=== PATIENT | male | born 1955 | race Caucasian/White ===

== ENCOUNTER 2017-02-03 11:12 | Inpatient (IN) | payer OTHER ==
[~2017-02-03] VITALS: Ht 175.3 cm; Wt 69.9 kg
[2017-02-03] VITALS (11 sets, daily range): BP systolic 101–139; BP diastolic 53–74
[2017-02-03 11:29] LABS: CARBOXY HGB 1.5 % (0-5); COMMENTS - BLOOD GASES C+; METHEMOGLOBIN 1.1 % (0-1.5); PCO2 < 20 mm Hg (35-45); PO2 147 mm Hg (80-100); SITE RB; pH < 6.91 (7.35-7.45)
[2017-02-03 11:30] LABS: DEVICE RA; FI02 0.21 %; TOTAL RESP RATE 38 resp/min
[2017-02-03 11:49] LABS: MCH 32.4 PG (29.0-34.0); MCHC 28.2 G/DL (30.0-36.0); MCV 114.6 FL (86-99); MEAN PLAT.VOLUME 12.1 uM^3 (9.0-12.4); PLATELET COUNT 261 K/uL (156-360); RBC DIS.WIDTH-CV 12.5 % (11.8-14.6); RED BLOOD COUNT 4.45 M/uL (4.00-5.50); WHITE BLOOD COUNT 28.9 K/uL (4.1-10.2)
[2017-02-03 11:54] LABS: PROTHROMBIN TIME 11.5 SEC (10.2-12.9)
[2017-02-03 11:56] LABS: PTT 29.3 SEC (25-37)
[2017-02-03 12:00] LABS: CHLORIDE 96 mEq/L (99-109); SODIUM 133 mEq/L (136-147)
[2017-02-03 12:03] LABS: ANION GAP 34 MEQ/L (2-14)
[2017-02-03 12:04] LABS: TOTAL BILIRUBIN 0.4 mg/dL (0.0-1.0)
[2017-02-03 12:06] LABS: ALKALINE PHOSPHATASE 147 IU/L (3-129)
[2017-02-03 12:07] LABS: UREA NITROGEN (BUN) 30 mg/dL (9-23)
[2017-02-03 12:08] LABS: TROP-I INTERPRETATION NEGATIVE; TROPONIN-I 0.02 ng/mL (0.0-0.30)
[2017-02-03 12:09] LABS: CREATINE KINASE 106 IU/L (1-294); GFR ESTIMATE (CALCULATED) 23 mL/min/; POTASSIUM 7.3 mEq/L (3.7-5.4); TOTAL CK 106 IU/L (1-294)
[2017-02-03 12:17] LABS: CK-MB 5.6 ng/mL (0.0-4.9)
[2017-02-03 12:19] LABS: GLUCOSE 1178 mg/dL (70-99)
[2017-02-03 12:22] LABS: CARBOXY HGB 1.4 % (0-5); COMMENTS - BLOOD GASES C+; METHEMOGLOBIN 1.3 % (0-1.5); PCO2 < 20 mm Hg (35-45); PO2 143 mm Hg (80-100); SITE RB; pH 6.95 (7.35-7.45)
[2017-02-03 12:23] LABS: DEVICE RA; FI02 0.21 %; TOTAL RESP RATE 36 resp/min
[2017-02-03] MEDS ORDERED: NOVOLOG PE100 UNITS/ SC (12:45)
[2017-02-03] MEDS ORDERED: NEURONTIN300 MG PO (12:45)
[2017-02-03] MEDS ORDERED: LISINOPRIL10 MG PO (12:45)
[2017-02-03] MEDS ORDERED: LANTUS 3 M100 UNITS1 SC (12:45)
[2017-02-03] MEDS ORDERED: OXYCODONE HCL10 MG PO (12:46)
[2017-02-03 12:48] LABS: BURR CELLS 1+; EOSINOPHIL ABS CT 0; INSTRUMENT ABS NEUTROPHIL CT 22.8 K/uL; LYMPHOCYTES 7.5 % (15.0-45.0); METAMYELOCYTES 0.9 %; MYELOCYTES 0.4 %; PLAT.SUFFICIENCY ADEQUATE; POIKILOCYTOSIS 1+; SEG.NEUTROPHILS 89.9 % (46.0-76.0); TOX.VACUOLIZATION 2+
[2017-02-03 13:54] LABS: CARBOXY HGB 1.5 % (0-5); COMMENTS - BLOOD GASES C+; DEVICE RA; FI02 0.21 %; METHEMOGLOBIN 1.3 % (0-1.5); PCO2 < 20 mm Hg (35-45); SITE RB; pH 7.04 (7.35-7.45)
[2017-02-03 13:55] LABS: TOTAL RESP RATE 26 resp/min
[2017-02-03 13:56] LABS: Estimated Average Glucose 246 mg/dL (70-123); HEMOGLOBIN A1c (GLYCOHEMOGLOB) 10.2 % HGB (Below 5.7)
[2017-02-03 15:42] LABS: ANION GAP 31 MEQ/L (2-14); CHLORIDE 105 MEQ/L (99-109); SAMPLE HEMOLYSIS CHECK 0; SAMPLE ICTERIC CHECK 0; SAMPLE LIPEMIA CHECK 0; UREA NITROGEN (BUN) 30 mg/dL (9-23)
[2017-02-03 15:44] LABS: GFR ESTIMATE (CALCULATED) 36 mL/min/; GLUCOSE 872 mg/dL (70-99); POTASSIUM 3.6 MEQ/L (3.7-5.4); SODIUM 144 MEQ/L (136-147)
[2017-02-03 15:51] LABS: METH RESISTANT S AUREUS PCR NEGATIVE (NEGATIVE)
[2017-02-03 15:52] LABS: PROBE CHECK PASS; SPECIMEN PROCESSING CONTROL PASS
[2017-02-03] MEDS ORDERED: ATORVASTATIN CA10 MG PO (16:35)
[2017-02-03] MEDS ORDERED: METFORMIN HCL500 MG PO (16:35)
[2017-02-03 18:57] LABS: POINT-OF-CARE METER ID UU13113731
[2017-02-03 19:07] LABS: ANION GAP 23 MEQ/L (2-14); CHLORIDE 113 MEQ/L (99-109); GFR ESTIMATE (CALCULATED) 47 mL/min/; POTASSIUM 3.6 MEQ/L (3.7-5.4); SAMPLE HEMOLYSIS CHECK 0; SAMPLE ICTERIC CHECK 0; SAMPLE LIPEMIA CHECK 0; SODIUM 149 MEQ/L (136-147); UREA NITROGEN (BUN) 30 mg/dL (9-23)
[2017-02-03 19:09] LABS: GLUCOSE 462 mg/dL (70-99)
[2017-02-03 19:25] LABS: POINT-OF-CARE METER ID UU13113803; POINT-OF-CARE USER ID LABHNS84
[2017-02-03 20:28] LABS: POINT-OF-CARE METER ID UU13113803; POINT-OF-CARE USER ID LABHNS84
[2017-02-03 21:33] LABS: POINT-OF-CARE METER ID UU13113731
[2017-02-03 21:55] LABS: POINT-OF-CARE METER ID UU13113731
[2017-02-03 21:55] LABS: POINT-OF-CARE METER ID UU13113731
[2017-02-03 22:32] LABS: POINT-OF-CARE METER ID UU13113731
[2017-02-03 23:28] LABS: POINT-OF-CARE METER ID UU13113731
[2017-02-04] VITALS (21 sets, daily range): BP systolic 105–149; BP diastolic 50–90
[2017-02-04 00:24] LABS: POINT-OF-CARE METER ID UU13113731
[2017-02-04 00:53] LABS: POTASSIUM 3.7 mEq/L (3.7-5.4); SODIUM 152 mEq/L (136-147)
[2017-02-04 00:56] LABS: ANION GAP 12 MEQ/L (2-14); CHLORIDE 119 mEq/L (99-109); GLUCOSE 202 mg/dL (70-99)
[2017-02-04 00:58] LABS: GFR ESTIMATE (CALCULATED) 51 mL/min/
[2017-02-04 00:59] LABS: UREA NITROGEN (BUN) 31 mg/dL (9-23)
[2017-02-04 01:09] LABS: POINT-OF-CARE METER ID UU13113731
[2017-02-04 02:18] LABS: POINT-OF-CARE METER ID UU13113731
[2017-02-04 03:05] LABS: POINT-OF-CARE METER ID UU13113731
[2017-02-04 04:16] LABS: POINT-OF-CARE METER ID UU13113803
[2017-02-04 04:52] LABS: CHLORIDE 121 mEq/L (99-109); SODIUM 152 mEq/L (136-147)
[2017-02-04 04:54] LABS: GLUCOSE 156 mg/dL (70-99)
[2017-02-04 04:56] LABS: POINT-OF-CARE METER ID UU13113803
[2017-02-04 04:56] LABS: ANION GAP 11 MEQ/L (2-14)
[2017-02-04 04:58] LABS: GFR ESTIMATE (CALCULATED) 55 mL/min/
[2017-02-04 04:59] LABS: UREA NITROGEN (BUN) 30 mg/dL (9-23)
[2017-02-04 05:40] LABS: POINT-OF-CARE METER ID UU13113803
[2017-02-04 06:34] LABS: POINT-OF-CARE METER ID UU13113803
[2017-02-04 07:28] LABS: POINT-OF-CARE METER ID UU13113803
[2017-02-04 08:25] LABS: POINT-OF-CARE METER ID UU13113803
[2017-02-04 09:22] LABS: POINT-OF-CARE METER ID UU13113803
[2017-02-04 09:59] LABS: ANION GAP 8 MEQ/L (2-14); CHLORIDE 118 MEQ/L (99-109); GFR ESTIMATE (CALCULATED) > 59 mL/min/; GLUCOSE 210 mg/dL (70-99); POTASSIUM 4.1 MEQ/L (3.7-5.4); SAMPLE HEMOLYSIS CHECK 1; SAMPLE ICTERIC CHECK 0; SAMPLE LIPEMIA CHECK 0; SODIUM 151 MEQ/L (136-147); UREA NITROGEN (BUN) 30 mg/dL (9-23)
[2017-02-04 10:20] LABS: POINT-OF-CARE METER ID UU13113803
[2017-02-04 11:12] LABS: POINT-OF-CARE METER ID UU13113803
[2017-02-04 12:19] LABS: POINT-OF-CARE METER ID UU13113803
[2017-02-04 12:33] LABS: ANION GAP 6 MEQ/L (2-14); CHLORIDE 120 MEQ/L (99-109); GFR ESTIMATE (CALCULATED) > 59 mL/min/; GLUCOSE 187 mg/dL (70-99); POTASSIUM 3.9 MEQ/L (3.7-5.4); SAMPLE HEMOLYSIS CHECK 0; SAMPLE ICTERIC CHECK 0; SAMPLE LIPEMIA CHECK 0; SODIUM 156 MEQ/L (136-147); UREA NITROGEN (BUN) 30 mg/dL (9-23)
[2017-02-04 13:32] LABS: POINT-OF-CARE METER ID UU13113803
[2017-02-04 14:30] LABS: POINT-OF-CARE METER ID UU13113803
[2017-02-04 15:26] LABS: POINT-OF-CARE METER ID UU13113803
[2017-02-04 17:59] LABS: POINT-OF-CARE METER ID UU13113803
[2017-02-04 23:49] LABS: POINT-OF-CARE METER ID UU13113803
[2017-02-05] VITALS (13 sets, daily range): BP systolic 101–142; BP diastolic 56–89
[2017-02-05 06:12] LABS: POINT-OF-CARE METER ID UU14314082
[2017-02-05 06:49] LABS: ANION GAP 7 MEQ/L (2-14); CHLORIDE 110 MEQ/L (99-109); GFR ESTIMATE (CALCULATED) > 59 mL/min/; GLUCOSE 131 mg/dL (70-99); POTASSIUM 3.4 MEQ/L (3.7-5.4); SAMPLE HEMOLYSIS CHECK 0; SAMPLE ICTERIC CHECK 0; SAMPLE LIPEMIA CHECK 0; SODIUM 148 MEQ/L (136-147); UREA NITROGEN (BUN) 23 mg/dL (9-23)
[2017-02-05 11:42] LABS: POINT-OF-CARE METER ID UU14162636
[2017-02-05 12:21] LABS: POINT-OF-CARE METER ID UU14314082
[2017-02-05 14:07] LABS: POINT-OF-CARE METER ID UU14314082
[2017-02-05 18:10] LABS: POINT-OF-CARE METER ID UU14188577
[2017-02-05 22:05] LABS: POINT-OF-CARE METER ID UU14149397
[2017-02-06 04:47] VITALS: BP 108/65
[2017-02-06 06:50] LABS: POINT-OF-CARE METER ID UU14149397
[2017-02-06 07:12] LABS: POINT-OF-CARE METER ID UU14149397
[2017-02-06 07:27] LABS: ANION GAP 7 MEQ/L (2-14); CHLORIDE 105 MEQ/L (99-109); GFR ESTIMATE (CALCULATED) > 59 mL/min/; POTASSIUM 3.1 MEQ/L (3.7-5.4); SAMPLE HEMOLYSIS CHECK 0; SAMPLE ICTERIC CHECK 0; SAMPLE LIPEMIA CHECK 0; SODIUM 141 MEQ/L (136-147); UREA NITROGEN (BUN) 13 mg/dL (9-23)
[2017-02-06 07:33] LABS: GLUCOSE 52 mg/dL (70-99)
[2017-02-06 08:05] VITALS: BP 123/74
[2017-02-06 09:09] LABS: MAGNESIUM 2.2 mg/dl (1.3-2.7)
[2017-02-06 12:12] VITALS: BP 125/79
[2017-02-06 12:16] LABS: POINT-OF-CARE METER ID UU14117124
[2017-02-06 13:57] LABS: ALKALINE PHOSPHATASE 89 IU/L (3-129); DIRECT BILIRUBIN 0.1 mg/dL (0.0-0.3); TOTAL BILIRUBIN 0.7 MG/DL (0.0-1.0)
[2017-02-06 15:00] LABS: ADD MIUA? NO; BILIRUBIN NEGATIVE; BLOOD NEGATIVE; COLOR YELLOW ((YELLOW)); GLUCOSE (STRIP) >=500; KETONES 5; LEUKOCYTES NEGATIVE; NITRITE NEGATIVE; PROTEIN (STRIP) NEGATIVE; SPECIFIC GRAVITY 1.021 (1.000-1.030)
[2017-02-06 16:35] VITALS: BP 127/69
[2017-02-06 16:48] LABS: POINT-OF-CARE METER ID UU14117124
[2017-02-06] MEDS ORDERED: LYRICA150 MG PO (17:02)
[2017-02-06 20:43] VITALS: BP 122/64
[2017-02-06 23:08] LABS: POINT-OF-CARE METER ID UU13113717
[2017-02-06 23:48] VITALS: BP 140/75
[2017-02-07 07:01] LABS: HEMATOCRIT 38.9 % (38.0-50.0); MCH 31.5 PG (29.0-34.0); MCHC 32.1 G/DL (30.0-36.0); RBC DIS.WIDTH-CV 12.7 % (11.8-14.6); RBC DIS.WIDTH-SD 45.5 % (39-53); RED BLOOD COUNT 3.97 M/uL (4.00-5.50); WHITE BLOOD COUNT 8.4 K/uL (4.1-10.2)
[2017-02-07 07:13] LABS: ANION GAP 7 MEQ/L (2-14); CHLORIDE 106 MEQ/L (99-109); GFR ESTIMATE (CALCULATED) > 59 mL/min/; GLUCOSE 73 mg/dL (70-99); SAMPLE HEMOLYSIS CHECK 0; SAMPLE ICTERIC CHECK 0; SAMPLE LIPEMIA CHECK 0; SODIUM 146 MEQ/L (136-147); UREA NITROGEN (BUN) 11 mg/dL (9-23)
[2017-02-07 07:18] LABS: MEAN PLAT.VOLUME 11.2 uM^3 (9.0-12.4); PLAT.SUFFICIENCY DECREASED; PLATELET COUNT 115 K/uL (156-360); POTASSIUM 4.1 MEQ/L (3.7-5.4)
[2017-02-07 07:59] LABS: POINT-OF-CARE METER ID UU13113717
[2017-02-07 09:32] VITALS: BP 123/73
[2017-02-07] MEDS ORDERED: GABAPENTIN300 MG PO (11:45)
[2017-02-07] MEDS ORDERED: NICOTINE PATCH1 EAC2 TD (11:45)
[2017-02-07] MEDS ORDERED: LYRICA150 MG PO (11:45)
[2017-02-07] MEDS ORDERED: METFORMIN HCL500 MG PO (11:45)
[2017-02-07] MEDS ORDERED: NOVOLIN,HU100 UNITS/ SC ×2 (11:45→11:51)
[2017-02-07 12:41] LABS: POINT-OF-CARE METER ID UU13113717
== END 2017-02-07 15:10 | disposition home or self-care (01) | DRG 638 ==
LOC: EME 11:12 → 3EAST 12:33 → 4WEST 12:33 → EDOF 12:33 → ENRESERV 12:36 → EDOF 13:12 → 4WEST 14:08 → ENRESERV 02-05 14:58 → 3EAST 02-05 16:41 → ENRESERV 02-06 18:01 → 5SOUTH 02-06 20:04 → ENPENDDIS 02-07 → 5SOUTH 02-07 15:10
PROVIDERS: Emergency Medicine; Family Medicine; Hospitalist; Internal Medicine Critical Care Medicine; Physician Assistant; Specialist
DX: E10.10 Type 1 diabetes mellitus with ketoacidosis without coma (principal); N17.9 Acute kidney failure, unspecified; T46.4X5A Adverse effect of angiotensin-converting-enzyme inhibitors, initial encounter; E86.0 Dehydration; E86.1 Hypovolemia; E87.0 Hyperosmolality and hypernatremia; E87.5 Hyperkalemia; E87.6 Hypokalemia; R09.02 Hypoxemia; I10 Essential (primary) hypertension; J43.9 Emphysema, unspecified; F17.200 Nicotine dependence, unspecified, uncomplicated
CPT/HCPCS: 36600; 70450; 71010; 80048; 80048 91; 80053; 80076; 81003; 82010; 82550; 82553; 82803; 82948; 83036; 83605; 83735; 84100; 84295; 84484; 85025; 85027; 85048; 85610; 85730; 87040; 87077; 87086; 87502; 87641; 87801; 90686; 93005; 94799; 99281; 99285; J1644; J1815; J2270; J2405; J3370; J3480; J7030; J7040; J7050

== ENCOUNTER 2017-03-01 09:13 | Inpatient (IN) | payer OTHER ==
[~2017-03-01] VITALS: Ht 175.3 cm; Wt 71.6 kg
[~2017-03-01 09:13] MED LIST: ATORVASTATIN CA10 MG PO; GABAPENTIN300 MG PO; LANTUS 3 M100 UNITS1 SC; LISINOPRIL10 MG PO; LYRICA150 MG PO; METFORMIN HCL500 MG PO; NEURONTIN300 MG PO; NICOTINE PATCH1 EAC2 TD; NOVOLIN,HU100 UNITS/ SC; NOVOLOG PE100 UNITS/ SC; OXYCODONE HCL15 MG PO
[2017-03-01 11:09] LABS: APPEARANCE SL.HAZY ((CLEAR)); BILIRUBIN NEGATIVE; BLOOD NEGATIVE; COLOR YELLOW ((YELLOW)); GLUCOSE (STRIP) >=500; KETONES 20; LEUKOCYTES NEGATIVE; NITRITE NEGATIVE; PROTEIN (STRIP) NEGATIVE; SPECIFIC GRAVITY 1.033 (1.000-1.030)
[2017-03-01 11:10] LABS: HEMATOCRIT 46.3 % (38.0-50.0); MCH 32.2 PG (29.0-34.0); MCHC 33.5 G/DL (30.0-36.0); MCV 96.1 FL (86-99); RBC DIS.WIDTH-CV 13.3 % (11.8-14.6); WHITE BLOOD COUNT 10.6 K/uL (4.1-10.2)
[2017-03-01 11:12] LABS: BACTERIA RARE /HPF; EPITHELIAL CELLS RARE /HPF; MUCUS TRACE /LPF; RED BLOOD CELLS 0-5 /HPF (0-5); URIC ACID CRYSTALS 2+ /HPF; WHITE BLOOD CELLS 0-5 /HPF (0-5)
[2017-03-01 11:17] LABS: ALBUMIN 3.7 g/dL (3.2-4.8); HEMOGLOBIN 15.5 G/DL (12.5-16.6); PLATELET COUNT 272 K/uL (156-360); RED BLOOD COUNT 4.82 M/uL (4.00-5.50)
[2017-03-01 11:18] LABS: CHLORIDE 100 mEq/L (99-109); POTASSIUM 4.8 mEq/L (3.7-5.4); SODIUM 132 mEq/L (136-147)
[2017-03-01 11:20] LABS: GLUCOSE 307 mg/dL (70-99); TOTAL PROTEIN 6.7 g/dL (6.4-8.3)
[2017-03-01 11:22] LABS: TOTAL BILIRUBIN 0.8 mg/dL (0.0-1.0)
[2017-03-01 11:23] LABS: ALKALINE PHOSPHATASE 117 IU/L (3-129)
[2017-03-01 11:24] LABS: CREATININE 0.9 mg/dL (0.6-1.3); GFR ESTIMATE (CALCULATED) > 59 mL/min/ (58.99-99999)
[2017-03-01 11:25] LABS: AST (GOT) 10 IU/L (2-34); UREA NITROGEN (BUN) 21 mg/dL (9-23)
[2017-03-01 11:27] LABS: ALT (GPT) 9 IU/L (3-49); LIPASE 2 U/L (1.0-51.0)
[2017-03-01 11:46] LABS: TROP-I INTERPRETATION NEGATIVE; TROPONIN-I < 0.01 ng/mL (0.0-0.30)
[2017-03-01 14:22] LABS: MAGNESIUM 1.9 mg/dL (1.3-2.7)
[2017-03-01 14:27] LABS: PHOSPHORUS 4.6 mg/dL (2.5-4.9)
[2017-03-01] MEDS ORDERED: LEVEMIR100 UNIT/2 SC (15:14)
[2017-03-01 17:00] VITALS: BP 159/84
[2017-03-01 22:58] VITALS: BP 137/84
[2017-03-02 04:27] VITALS: BP 138/71
[2017-03-02 05:45] LABS: HEMATOCRIT 35.9 % (38.0-50.0); MCH 31.9 PG (29.0-34.0); MCHC 32.3 G/DL (30.0-36.0); MCV 98.6 FL (86-99); PLATELET COUNT 223 K/uL (156-360); RBC DIS.WIDTH-CV 13.2 % (11.8-14.6); RBC DIS.WIDTH-SD 48.5 % (39-53); WHITE BLOOD COUNT 7.4 K/uL (4.1-10.2)
[2017-03-02 05:47] LABS: HEMOGLOBIN 11.6 G/DL (12.5-16.6); RED BLOOD COUNT 3.64 M/uL (4.00-5.50)
[2017-03-02 05:59] LABS: CHLORIDE 101 MEQ/L (99-109); CREATININE 0.6 MG/DL (0.6-1.3); GFR ESTIMATE (CALCULATED) > 59 mL/min/ (58.99-99999); GLUCOSE 245 mg/dL (70-99); POTASSIUM 4.7 MEQ/L (3.7-5.4); SODIUM 136 MEQ/L (136-147); UREA NITROGEN (BUN) 14 mg/dL (9-23)
[2017-03-02 08:11] VITALS: BP 137/77
[2017-03-02 11:38] VITALS: BP 127/67
[2017-03-02 16:04] VITALS: BP 120/67
[2017-03-02 19:21] VITALS: BP 130/63
[2017-03-02 23:31] VITALS: BP 125/66
[2017-03-03] VITALS (14 sets, daily range): BP systolic 107–146; BP diastolic 56–84
[2017-03-03 05:04] LABS: BASOPHIL (%) 0.4 % (0-1); EOSINOPHIL (%) 1.3 % (0-5); EOSINOPHIL COUNT 0.1 K/uL (0-0.3); HEMATOCRIT 32.4 % (38.0-50.0); HEMOGLOBIN 10.6 G/DL (12.5-16.6); IMMATURE GRANULOCYTE (%) 0.4 % (0.0-0.7); LYMPHOCYTE (%) 16.7 % (15-42); LYMPHOCYTE COUNT 1.2 K/uL (1.0-2.8); MCH 32.4 PG (29.0-34.0); MCHC 32.7 G/DL (30.0-36.0); MCV 99.1 FL (86-99); MONOCYTE (%) 9.9 % (3-12); MONOCYTE COUNT 0.7 K/uL (0-0.8); NEUTROPHIL (%) 71.3 % (45-76); PLATELET COUNT 176 K/uL (156-360); RBC DIS.WIDTH-CV 13.1 % (11.8-14.6); RBC DIS.WIDTH-SD 47.7 % (39-53); RED BLOOD COUNT 3.27 M/uL (4.00-5.50); WHITE BLOOD COUNT 7.1 K/uL (4.1-10.2)
[2017-03-03 05:15] LABS: CHLORIDE 99 mEq/L (99-109); POTASSIUM 3.8 mEq/L (3.7-5.4); SODIUM 137 mEq/L (136-147)
[2017-03-03 05:16] LABS: GLUCOSE 229 mg/dL (70-99)
[2017-03-03 05:20] LABS: CREATININE 0.6 mg/dL (0.6-1.3); GFR ESTIMATE (CALCULATED) > 59 mL/min/ (58.99-99999)
[2017-03-03 05:21] LABS: UREA NITROGEN (BUN) 10 mg/dL (9-23)
[2017-03-03 11:33] LABS: HEMATOCRIT 35.2 % (38.0-50.0); HEMOGLOBIN 11.4 G/DL (12.5-16.6); MCH 32.2 PG (29.0-34.0); MCHC 32.4 G/DL (30.0-36.0); MCV 99.4 FL (86-99); PLATELET COUNT 221 K/uL (156-360); RBC DIS.WIDTH-SD 47.6 % (39-53); RED BLOOD COUNT 3.54 M/uL (4.00-5.50); WHITE BLOOD COUNT 11.2 K/uL (4.1-10.2)
[2017-03-03 11:41] LABS: ALBUMIN 2.9 g/dL (3.2-4.8)
[2017-03-03 11:42] LABS: CHLORIDE 97 mEq/L (99-109); POTASSIUM 3.9 mEq/L (3.7-5.4); SODIUM 134 mEq/L (136-147)
[2017-03-03 11:44] LABS: GLUCOSE 234 mg/dL (70-99)
[2017-03-03 11:47] LABS: ALKALINE PHOSPHATASE 96 IU/L (3-129)
[2017-03-03 11:48] LABS: CREATININE 0.7 mg/dL (0.6-1.3); GFR ESTIMATE (CALCULATED) > 59 mL/min/ (58.99-99999)
[2017-03-03 11:49] LABS: AST (GOT) 7 IU/L (2-34); TOTAL BILIRUBIN 0.6 mg/dL (0.0-1.0); TOTAL PROTEIN 5.5 g/dL (6.4-8.3); UREA NITROGEN (BUN) 9 mg/dL (9-23)
[2017-03-03 11:50] LABS: ALT (GPT) 6 IU/L (3-49)
[2017-03-03 11:54] LABS: TROP-I INTERPRETATION NEGATIVE; TROPONIN-I < 0.01 ng/mL (0.0-0.30)
[2017-03-03 17:28] LABS: TROP-I INTERPRETATION NEGATIVE; TROPONIN-I < 0.01 ng/mL (0.0-0.30)
[2017-03-03 23:34] LABS: TROP-I INTERPRETATION NEGATIVE; TROPONIN-I < 0.01 ng/mL (0.0-0.30)
[2017-03-04] VITALS (19 sets, daily range): BP systolic 114–151; BP diastolic 65–86
[2017-03-04 06:02] LABS: BASOPHIL (%) 0.4 % (0-1); EOSINOPHIL (%) 2.8 % (0-5); EOSINOPHIL COUNT 0.2 K/uL (0-0.3); HEMATOCRIT 32.3 % (38.0-50.0); HEMOGLOBIN 10.3 G/DL (12.5-16.6); IMMATURE GRANULOCYTE (%) 0.4 % (0.0-0.7); LYMPHOCYTE (%) 14.4 % (15-42); LYMPHOCYTE COUNT 1.1 K/uL (1.0-2.8); MCH 31.8 PG (29.0-34.0); MCHC 31.9 G/DL (30.0-36.0); MCV 99.7 FL (86-99); MONOCYTE (%) 8.5 % (3-12); MONOCYTE COUNT 0.7 K/uL (0-0.8); NEUTROPHIL (%) 73.5 % (45-76); NEUTROPHIL COUNT 5.7 K/uL (1.8-6.4); PLATELET COUNT 190 K/uL (156-360); RBC DIS.WIDTH-CV 12.6 % (11.8-14.6); RBC DIS.WIDTH-SD 46.3 % (39-53); RED BLOOD COUNT 3.24 M/uL (4.00-5.50); WHITE BLOOD COUNT 7.8 K/uL (4.1-10.2)
[2017-03-04 06:40] LABS: CHLORIDE 98 MEQ/L (99-109); CREATININE 0.5 MG/DL (0.6-1.3); GFR ESTIMATE (CALCULATED) > 59 mL/min/ (58.99-99999); GLUCOSE 230 mg/dL (70-99); MAGNESIUM 1.8 mg/dl (1.3-2.7); POTASSIUM 4.3 MEQ/L (3.7-5.4); SODIUM 135 MEQ/L (136-147); UREA NITROGEN (BUN) 6 mg/dL (9-23)
[2017-03-05 07:20] VITALS: BP 123/64
[2017-03-05 15:20] VITALS: BP 127/66
[2017-03-06 00:49] VITALS: BP 136/65
[2017-03-06 08:00] VITALS: BP 119/92
[2017-03-06] MEDS ORDERED: OXYCODONE HCL5 MG PO (10:59)
[2017-03-06] MEDS ORDERED: LEVEMIR100 UNIT/2 SC (11:06)
[2017-03-06] MEDS ORDERED: TEST STRIPS MC (11:08)
[2017-03-06] MEDS ORDERED: INSULIN SYRING1 EA53 MC (11:08)
[2017-03-06] MEDS ORDERED: ONE TOUCH LANC1 EACH MC (11:08)
[2017-03-06] MEDS ORDERED: OXYCODONE HCL15 MG PO (11:38)
== END 2017-03-06 13:56 | disposition home or self-care (01) | DRG 330 ==
LOC: EME 09:13 → EDOF 14:34 → 4EAST 14:34 → 4WEST 14:34 → ENRESERV 14:36 → 4EAST 16:51 → ENRESERV 03-03 11:27 → 4WEST 03-03 11:37 → ENRESERV 03-04 18:42 → 5EAST 03-04 20:18 → ENPENDDIS 03-06 → 5EAST 03-06 13:56
PROVIDERS: Emergency Medicine; Hospitalist; Internal Medicine Critical Care Medicine; Physician Assistant; Student in an Organized Health Care Education/Training Program; Surgery
PROC: 0DBB0ZZ Excision of Ileum, Open Approach (ICD-10-PCS; principal; 2017-03-01)
PROC: 07BB0ZX Excision of Mesenteric Lymphatic, Open Approach, Diagnostic (ICD-10-PCS; principal; 2017-03-01)
PROC: 0DBN0ZX Excision of Sigmoid Colon, Open Approach, Diagnostic (ICD-10-PCS; principal; 2017-03-01)
DX: K46.0 Unspecified abdominal hernia with obstruction, without gangrene (principal); K56.691 Other complete intestinal obstruction; R59.0 Localized enlarged lymph nodes; R18.8 Other ascites; R50.9 Fever, unspecified; R00.0 Tachycardia, unspecified; R55 Syncope and collapse; R09.02 Hypoxemia; J98.01 Acute bronchospasm; E87.1 Hypo-osmolality and hyponatremia; E86.0 Dehydration; E11.65 Type 2 diabetes mellitus with hyperglycemia; T38.3X6A Underdosing of insulin and oral hypoglycemic [antidiabetic] drugs, initial encounter; Z91.128 Patient's intentional underdosing of medication regimen for other reason; J44.9 Chronic obstructive pulmonary disease, unspecified; I10 Essential (primary) hypertension; E11.42 Type 2 diabetes mellitus with diabetic polyneuropathy; E78.5 Hyperlipidemia, unspecified; K57.90 Diverticulosis of intestine, part unspecified, without perforation or abscess without bleeding; F17.210 Nicotine dependence, cigarettes, uncomplicated; G89.29 Other chronic pain; M54.9 Dorsalgia, unspecified; Z79.891 Long term (current) use of opiate analgesic; Z79.4 Long term (current) use of insulin; Z23 Encounter for immunization
CPT/HCPCS: 74177; 80048; 80053; 81003; 82800; 82948; 83690; 83735; 83930; 84100; 84484; 85025; 85027; 87641; 88305; 88307; 88331; 93005; 94010; 94640; 94640 76; 94799; 99202; 99281; 99285; J0330; J0610; J1100; J1170; J1644; J1815; J2175; J2270; J2405; J2710; J3010; J3480; J7030; J7050; J7120; P9045

== ENCOUNTER 2017-03-10 16:10 | Emergency (ER) | payer OTHER ==
[~2017-03-10] VITALS: Ht 175.3 cm; Wt 69.4 kg
[~2017-03-10 16:10] MED LIST changes: +INSULIN SYRING1 EA53 MC; +LEVEMIR100 UNIT/2 SC; +ONE TOUCH LANC1 EACH MC; +OXYCODONE HCL5 MG PO; +TEST STRIPS MC
[2017-03-10 18:12] LABS: HEMATOCRIT 35.4 % (38.0-50.0); HEMOGLOBIN 11.4 G/DL (12.5-16.6); MCHC 32.2 G/DL (30.0-36.0); MCV 99.4 FL (86-99); RBC DIS.WIDTH-CV 13.2 % (11.8-14.6); RBC DIS.WIDTH-SD 47.8 % (39-53); RED BLOOD COUNT 3.56 M/uL (4.00-5.50); WHITE BLOOD COUNT 7.4 K/uL (4.1-10.2)
[2017-03-10 18:20] LABS: ALBUMIN 3.5 g/dL (3.2-4.8); CHLORIDE 105 mEq/L (99-109); SODIUM 141 mEq/L (136-147)
[2017-03-10 18:21] LABS: PLATELET COUNT 352 K/uL (156-360)
[2017-03-10 18:22] LABS: GLUCOSE 231 mg/dL (70-99)
[2017-03-10 18:23] LABS: TOTAL PROTEIN 6.7 g/dL (6.4-8.3)
[2017-03-10 18:24] LABS: TOTAL BILIRUBIN 0.6 mg/dL (0.0-1.0)
[2017-03-10 18:26] LABS: ALKALINE PHOSPHATASE 96 IU/L (3-129); CREATININE 0.7 mg/dL (0.6-1.3); GFR ESTIMATE (CALCULATED) > 59 mL/min/ (58.99-99999)
[2017-03-10 18:27] LABS: UREA NITROGEN (BUN) 10 mg/dL (9-23)
[2017-03-10 18:28] LABS: AST (GOT) 10 IU/L (2-34)
[2017-03-10 18:29] LABS: ALT (GPT) 8 IU/L (3-49)
[2017-03-10] MEDS ORDERED: KEFLEX500 MG PO (19:24)
[2017-03-10] MEDS ORDERED: OXYCODONE HCL15 MG PO (19:29)
[2017-03-10 19:47] VITALS: BP 145/86
== END 2017-03-10 19:48 | disposition home or self-care (01) ==
LOC: EME 16:10
PROVIDERS: Physician Assistant
DX: T81.4XXA Infection following a procedure, initial encounter (principal); J44.9 Chronic obstructive pulmonary disease, unspecified; E11.9 Type 2 diabetes mellitus without complications; I10 Essential (primary) hypertension; F17.200 Nicotine dependence, unspecified, uncomplicated; Z79.4 Long term (current) use of insulin
CPT/HCPCS: 74177; 80053; 85027; 87040; 99281; 99285; J3010; J7030